=== PATIENT | male | born 2000 | race Caucasian/White ===

== ENCOUNTER 2020-12-03 02:38 | Emergency (ER) | payer MEDICAID ==
[~2020-12-03] VITALS: Ht 182.9 cm; Wt 62.5 kg
--- NOTE | 2020-12-03 02:49 | NUR ---
EKG DONE IN TRIAGE.
[2020-12-03 03:29] LABS: ALBUMIN 4.9 g/dL (3.4-5.0); ANION GAP 6 mmol/L (5-15); CALCIUM 9.3 mg/dL (8.5-10.1); CHLORIDE 103 mmol/L (98-107)
[2020-12-03 03:32] LABS: BASOPHILS % (AUTO) 0 % (0-1); EOSINOPHILS % (AUTO) 0 % (1-7); LYMPHOCYTES % (AUTO) 11 % (22-44); MEAN CORPUSCULAR HEMOGLOBIN 31.9 pg (27.5-34.5); MEAN CORPUSCULAR HGB CONC 35.2 g/dL (33.2-36.2); MEAN PLATELET VOLUME 10.5 fL (7.4-10.4); MONOCYTES % (AUTO) 6 % (2-9); NEUTROPHILS % (AUTO) 83 % (42-75); PLATELET COUNT 143 x10^3/uL (130-400); RED BLOOD COUNT 5.59 x10^6/uL (4.38-5.82); RED CELL DISTRIBUTION WIDTH 12.3 % (9.4-14.8)
[2020-12-03 03:40] LABS: ALANINE AMINOTRANSFERASE 35 U/L (12-78); ALKALINE PHOSPHATASE 106 U/L (45-117); BILIRUBIN,TOTAL 3.2 mg/dL (0.2-1.0); CREATININE 1.05 mg/dL (0.7-1.3); TOTAL PROTEIN 8.4 g/dL (6.4-8.2)
--- NOTE | 2020-12-03 04:08 | NUR ---
pt to room from lobby
--- NOTE | 2020-12-03 05:46 | NUR ---
PATIENT UPDATED ON PLAN OF CARE. NO NOTED ADDITIONAL NEEDS AT THIS TIME. AWAITING FURTHER ORDERS.
[2020-12-03] MEDS ORDERED: POTASSIUM CHLORIDE 20 MEQ PACKET ONE (06:19)
[2020-12-03 06:26] VITALS: BP 110/64
[2020-12-03] MEDS ORDERED: POTASSIUM CHLORIDE 20 MEQ PACKET PO ONE (06:30)
== END 2020-12-03 06:37 | disposition home or self-care (01) ==
LOC: ED 03:00
DX: F41.1 Generalized anxiety disorder (principal); R06.4 Hyperventilation; R42 Dizziness and giddiness; R51.9 Headache, unspecified
CPT/HCPCS: 36415; 80053; 84439; 84443; 85025; 93005; 99284